=== PATIENT | male | born 1995 | race African-American/Black ===

== ENCOUNTER 2016-09-06 21:32 | Emergency (ER) | payer BC, OTHER ==
[~2016-09-06] VITALS: Ht 172.7 cm; Wt 59.0 kg
--- NOTE | ~2016-09-06 | CT4 ---
[facility] A Service of [facility] RADIOLOGY TEXT RESULTS PATIENT: LUZMA HOLT LOCATION: [place] : 95 UNIT #: [id number] AGE: [address]: Padilla Garcias SEX: M ORDER DR: [id number] [address] [address] [id number] MR#: [id number] #: [id number] NAME: LUZMA HOLT : 1995 SEX: M STUDY DATE/TIME: 09/07/2016 2:01 UNIT: [facility] ROOM: STUDY DESCRIPTION: CT Abd and Pelv Wo Cont Attending Physician: Padilla Garcais Referring Physician: [facility] Ordering Physician: Padilla Garcias Primary Care Physician: [facility] MEDICAL IMAGING REPORT This report is preliminary unless electronic signature is present EXAM CT abdomen and pelvis without contrast. INDICATIONS Hematuria and generalized abdominal pain today. PROCEDURE Unenhanced CT of the abdomen and pelvis. This CT exam was performed with one or more of the following radiation dose reduction techniques: automatic exposure control, adjustment of mA and/or kV according to patient size, and iterative reconstruction. COMPARISON None. FINDINGS Abdomen without contrast: Included lung bases are clear. Liver, spleen, adrenal glands, pancreas and gallbladder are unremarkable. Moderate colonic stool burden. Appendix is partially seen and visualized portions are unremarkable. There are a few tiny nonobstructing calculi in the left kidney. No radiodense ureteral calculus or hydronephrosis. Pelvis without contrast: No radiodense bladder calculus. No aggressive appearing bone lesion. IMPRESSION 1. No acute findings in the abdomen or pelvis. 2. Moderate colonic stool burden and nonobstructing calculi in the left kidney. Dictated by... Aldo Art M.D. [facility] A Service of [facility] RADIOLOGY TEXT RESULTS PATIENT: LUZMA HOLT LOCATION: [place] : 95 UNIT #: [id number] AGE: [address]: Garcias,Padilla W SEX: M ORDER DR: THIS IS AN ELECTRONICALLY VERIFIED REPORT Aldo Art M.D. at 09/07/2016 9:50 PM GER/milton TD: 09/07/2016 13:41 JOB #: [id number] MEDICAL IMAGING REPORT Page 1 of 1 COPY
[~2016-09-06 21:32] MED LIST: CIPRO PO; LORTAB 5/500 TA1 TA1 PO; MOTRIN400 MG PO; PYRIDIUM PO
[2016-09-07 01:10] LABS: CULTURE INDICATED? YES; URBCS1 AUWI INNUM /[HPF] (0-2); URINE APPEARANCE CLOUDY; URINE BACTERIA AUWI 4+ (NEGATIVE); URINE BILIRUBIN NEG (NEG); URINE BLOOD 3+ (NEG); URINE COLOR DK YELLOW; URINE GLUCOSE NEG (NEG); URINE KETONE TRACE (NEG); URINE LEUKOCYTE ESTERASE 3+ (NEG); URINE NITRATE NEG (NEG); URINE PROTEIN 1+ (NEG); URINE SOURCE CLEAN CATCH; URINE SPECIFIC GRAVITY 1.026 (1.003-1.035); URINE SQUAMOUS EPITHELIAL CELL NONE SEEN /[HPF]; UWBCS1 AUWI INNUM (0-5)
[2016-09-07 03:09] LABS: URINE BACTERIA 3+ (NEG); URINE CRYSTALS CALCIUM OXALATE /[HPF]; URINE RBC 100-200 /[HPF] (0-2); URINE SQUAMOUS EPITHELIAL CELL FEW /[HPF]; URINE WBC 100-200 /[HPF] (0-5)
[2016-09-07 06:24] LABS: URINE TRICHOMONAS NEGATIVE
[2016-09-08 20:48] LABS: CHLAMYDIA TRACH Not Detected (Not Detected); N GONOR Not Detected (Not Detected)
== END 2016-09-07 03:30 | disposition home or self-care (01) ==
LOC: CED 21:32 → CFTX 21:32 → CED 09-07 00:58
PROVIDERS: Nurse Practitioner
DX: N34.1 Nonspecific urethritis (principal); F17.210 Nicotine dependence, cigarettes, uncomplicated
CPT/HCPCS: 74176; 81003; 87086; 87186; 87491; 87591; 96372; 99284; J0696